=== PATIENT | female | born 1970 | race African-American/Black ===

== ENCOUNTER 2018-02-14 14:56 | Emergency (ER) | payer SELFPAY ==
[~2018-02-14] VITALS: Ht 165.1 cm; Wt 154.2 kg
[2018-02-14] MEDS ORDERED: TRESIBA FL100 UNIT/1 SUB-Q (15:13)
[2018-02-14] MEDS ORDERED: NOVOLOG100 UNIT/2 SUB-Q (15:13)
[2018-02-14] MEDS ORDERED: VICTOZA 2-0.6 MG/0.1 SUB-Q (15:13)
[2018-02-14] MEDS ORDERED: ZIAC 2.5-6.25 MG1 EA PO (15:14)
[2018-02-14] MEDS ORDERED: GLUCOPHAGE500 MG PO (15:14)
[2018-02-14] MEDS ORDERED: CYMBALTA20 MG PO (15:15)
[2018-02-14] MEDS ORDERED: LAMICTAL150 MG PO (15:16)
[2018-02-14] MEDS ORDERED: XANAX1 MG PO (15:16)
[2018-02-14] MEDS ORDERED: ASPIRIN EC81 MG PO (15:18)
== END 2018-02-14 16:25 | disposition home or self-care (01) ==
LOC: ED 14:56
DX: H57.8 Other specified disorders of eye and adnexa (principal)